=== PATIENT | male | born 1955 | race Caucasian/White ===

== ENCOUNTER 2017-05-23 15:21 | Emergency (ER) | payer MEDICARE ==
[~2017-05-23] VITALS: Ht 180.3 cm; Wt 70.0 kg
[~2017-05-23 15:21] MED LIST: ALBUTEROL SULFA0.5 % IN; IPRATROPIUM BR0.03 %; PREDNISONE1 MG PO; PRILOSEC20 MG/CAP PO; SYMBICORT1 AE1 IN; VENTOLIN HFA IN
[2017-05-23] MEDS ORDERED: PREDNISONE10 MG PO (15:45)
[2017-05-23 16:31] LABS: HEMATOCRIT 47.1 % (39.0-50.0); HEMOGLOBIN 15.4 g/dl (14.0-18.0); IMMATURE GRANULOCYTES 0.7 % (0.0-1.0); MEAN CELL VOLUME 94.8 fL CALC (80.0-100.0); MEAN CORPUSCULAR HGB CONC 32.7 g/L CALC (32.0-36.0); NEUT# 9.27 thou/uL (1.82-7.42); RED BLOOD COUNT 4.97 mill/uL (4.70-6.10); RED CELL DISTRI WIDTH 14.8 % (11.5-15.5)
[2017-05-23 16:38] LABS: ANION GAP 17 (6-22 (CALC)); BUN 14 mg/dL (9-20); BUN/CREATININE RATIO 19 (12-20 (CALC)); CARBON DIOXIDE 28 mmol/l (22-30); CHLORIDE 102 mmol/l (95-108); CREATININE 0.7 mg/dL (0.7-1.3); GFR > 60 ML/MIN (>=60 (CALC)); GFR FOR AFR.AMER. > 60 ML/MIN (>=60 (CALC)); POTASSIUM 3.6 mmol/l (3.5-5.1); SODIUM 143 mmol/l (137-146)
[2017-05-23] MEDS ORDERED: ZPAK PO (17:34)
[2017-05-23] MEDS ORDERED: PREDNISONE50 MG PO (17:34)
[2017-05-23 17:35] VITALS: BP 171/97
== END 2017-05-23 17:35 | disposition left against medical advice (07) ==
LOC: ED 15:21
PROVIDERS: Family Medicine
DX: J44.1 Chronic obstructive pulmonary disease with (acute) exacerbation (principal); I10 Essential (primary) hypertension; R06.02 Shortness of breath; Z91.19 Patient's noncompliance with other medical treatment and regimen

== ENCOUNTER 2017-11-06 22:13 | Emergency (ER) | payer MEDICARE ==
[~2017-11-06] VITALS: Ht 180.3 cm; Wt 75.0 kg
[~2017-11-06 22:13] MED LIST changes: +PREDNISONE10 MG PO; +PREDNISONE50 MG PO; +ZPAK PO
[2017-11-06] MEDS ORDERED: PREDNISONE10 MG PO (23:16)
[2017-11-07 00:04] VITALS: BP 159/87
== END 2017-11-07 00:05 | disposition home or self-care (01) ==
LOC: ED 22:13
DX: M54.12 Radiculopathy, cervical region (principal)

== ENCOUNTER 2017-12-22 10:27 | Inpatient (IN) | payer MEDICARE ==
[~2017-12-22] VITALS: Ht 180.3 cm; Wt 65.0 kg
[2017-12-22] VITALS (13 sets, daily range): BP systolic 91–148; BP diastolic 51–86
--- NOTE | 2017-12-22 10:36 | NUR ---
PT TO ROOM VIA WHEELCHAIR.
--- NOTE | 2017-12-22 10:43 | NUR ---
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 HIS PCP GAVE 2 UNKNOWN MEDICATIONS TO TREAT HIM BUT SYMPTOMS WORSENED AND FEVER STARTED 2 DAYS PRIOR.
[2017-12-22 11:13] LABS: HEMATOCRIT 42.5 % (39.0-50.0); HEMOGLOBIN 14.6 g/dl (14.0-18.0); MEAN CELL VOLUME 92.8 fL CALC (80.0-100.0); MEAN CORPUSCULAR HGB 31.9 pG CALC (26.0-32.0); MEAN CORPUSCULAR HGB CONC 34.4 g/L CALC (32.0-36.0); NEUT# 19.33 thou/uL (1.82-7.42); PLATELET COUNT 328 thou/uL (130-400); RED BLOOD COUNT 4.58 mill/uL (4.70-6.10)
--- NOTE | 2017-12-22 11:17 | NUR ---
PT WITH HOB ELEVATED, NON PRODUCTIVE COUGH NOTED. LS DIMINISHED, 02 89-90% RA. AWARE. ABG ORDERED AT THIS TIME. RT AT BEDSIDE.
[2017-12-22 11:27] LABS: ALBUMIN 3.9 g/dL (3.2-5.0); BILIRUBIN, TOTAL 0.8 mg/dL (0.0-1.4); TOTAL PROTEIN 8.6 g/dL (6.3-8.2)
[2017-12-22 11:28] LABS: INFLUENZA A NONE DETECTED (NONE DETECT); INFLUENZA B NONE DETECTED (NONE DETECT)
[2017-12-22 11:28] LABS: CREATININE 4.1 mg/dL (0.7-1.3)
--- NOTE | 2017-12-22 11:28 | NUR ---
RT AT BEDSIDE, PT PLACED ON O2 AT 3L VIA NC BY RT. 02 94-95% AT THIS TIME.
[2017-12-22 11:32] LABS: IMMATURE GRANULOCYTES 7.7 % (0.0-5.0)
[2017-12-22 11:33] LABS: MANUAL DIFFERENTIAL YES
[2017-12-22 11:34] LABS: BAND 10 % (0-8)
--- NOTE | 2017-12-22 11:39 | NUR ---
NS 1000ML BOLUS # [address] STARTED [address] VERBAL ORDER [address] GOFF. IV SITE WITHOUT REDNESS/SWELLILNG. ICE CHIPS GIVEN PER PT REQUEST.
--- NOTE | 2017-12-22 12:51 | NUR ---
SBAR PRINTED TO FLOOR
--- NOTE | 2017-12-22 12:57 | NUR ---
PT RESTING QUEITLY IN BED, DENIES PAIN OR DISCOMFORT. PT DIAPHORETIC, BP RECHECK SHOWS 80'S OVER 40'S. PULSE 103. THIRD NS 1000ML IV BOLUS STARTED. MD AWARE OF CHANGE IN STATUS.
--- NOTE | 2017-12-22 13:30 | NUR ---
TELEPHONE REPORT TO JEWEL DYER.
--- NOTE | 2017-12-22 14:24 | NUR ---
PT ARRIVED TO ICU UNIT, BED 7 FROM ER VIA STRETCHER WITH 02@3LPM VIA VT. PT IS ALERT TO SELF AND PLACE, PERRL. ST WITH PVC'S ON TELEMETRY, AP- 106, B/P 104/56, RR- 16, T- 96.7, SA02@96%. PT DENIES CHEST PAIN. PT NOTED WITH SHALLOW RESP, EVEN/UNLABORED, AUDIBLE WHEEZING THROUGHOUT. ABDOMEN IS SOFT/DISTENDED/NON-TENDER,BSX4,ACTIVE, PT REPORTS EPISODES ON DIARRHEA FOR LAST 2WEEKS. PT STATES CONTINENT OF B&B, CLOTHING FROM ER SOILED. [place]IS CATHETER TO BE PLACED PER DR. OWUSU. 18G TO RAC, UNABLE TO FLUSH AT THIS TIME. SITE DISCONTINUED, CATHETER INTACT, PT TOLERATED WELL. PT WITH NOTED GENERALIZED WEAKNESS, FARZANEH'S PLACED BLE. PT ORIENTED TO ROOM, SAFETY, CALL LIGHT AND STAFF. CALL LIGHT IN REACH, BED IN LOWEST POSITION. WILL MONITOR.
[2017-12-22 14:26] LABS: CHOLESTEROL HDL RATIO 9.2 (<4.4 (CALC))
--- NOTE | 2017-12-22 14:30 | NUR ---
DR. OWUSU AND NATA FUCHS AT BEDSIDE FOR ASSESSMENT AND TO DISCUSS PLAN OF CARE. PT TO BE STARTED ON NS@75ML/HR PER DR. OWUSU.
--- NOTE | 2017-12-22 16:15 | NUR ---
PT TAKEN FOR CT OF [place]OR[place] VIA WC.
--- NOTE | 2017-12-22 16:25 | NUR ---
PT BACK ON UNIT, ASSISTED TO BED, ALL MONITORING EQUIPMENT INTACT, PT TOLERATED WELL CALL LIGHT IN REACH, WILL MONITOR
--- NOTE | 2017-12-22 16:44 | NUR ---
NOTIFIED NATA FUCHS OF ECHO AND US OF KIDNEY ORDER. UNABLE TO BE DONE TONIGHT. NATA FUCHS STATED TO LEAVE ORDER STANDS TO BE DONE TOMORROW 12-23-17. NEW ORDER FOR CLEAR LIQUID DIET RECIEVED.
[2017-12-22 16:48] LABS: URINE BILIRUBIN - DIPSTICK NEGATIVE (NEGATIVE); URINE BLOOD DIPSTICK TRACE-LYSED (NEGATIVE); URINE COLOR YELLOW; URINE GLUCOSE - DIPSTICK NEGATIVE (NEGATIVE); URINE KETONE NEGATIVE (NEGATIVE); URINE LEUK ESTERASE NEGATIVE (NEGATIVE); URINE NITRITE - DIPSTICK NEGATIVE (Negative); URINE PROTEIN - DIPSTICK 30 mg/dL (NEG-TRACE); URINE SPECIFIC GRAVITY 1.015; URINE UROBILINOGEN - DIPSTICK 0.2 E.U./dL (0.2)
[2017-12-22 16:59] LABS: URINE AMORPH SEDIMENT MANY hpf (NONE-FER); URINE CLARITY CLOUDY; URINE SQUAMOUS EPITHELIAL CELL FEW EPI/hpf (0-FEW)
[2017-12-22 17:01] LABS: BARBITURATES NEGATIVE (NEGATIVE); COCAINE NEGATIVE (NEGATIVE); METHADONE NEGATIVE (NEGATIVE); OXCYCODONE NEGATIVE (NEGATIVE); TETRAHYDROCANNABIONOL NEGATIVE (NEGATIVE); TRICYLIC ANTIDEPRESSANTS POSITIVE (NEGATIVE)
--- NOTE | 2017-12-22 19:10 | NUR ---
awake. sitting in high fowlers position. sob with any activity. coarse/wheezy breath sounds bilat. o2 cont per nc. director of cardiac cath lab shows sinus tach. #20 rfa ns infusing @ 75cchr. velasquez cath in place. urine cloudy yellow. fall precautions cont.
--- NOTE | 2017-12-22 19:55 | NUR ---
pt c/o resp distress. sao2 79%. color dusky. skin diaphoretic. resps 44 & labored. registered nurse cardiac shows sinus tach hr 148. rt notified of need for neb tx.
--- NOTE | 2017-12-22 20:10 | NUR ---
AFTER GIVING A BREATHING TREATMENT TO THE PATIENT BECAUSE HIS BREATHING WAS 40 B/M, BREATH SOUND WHEEZING AND COARSE AT THE SAME TIME AND HIS SATURATION ON 2L 80%. ABG WAS DRAWN AND BIPAP WAS BROUGHT AT BEDSIDE WHILE DRAWING THE ABG. BIPAP PLACED ON PATIENT BEFORE RT LEFT THE ROOM TO ANALYSE ABG. RESULT ON DVTel. BIPAP SETTING 20/10 PRESSURE, 20 RATE, WITH 45% FIO2. PATIENT STATED BEING COMFORTABLE AFTER BEING PLACED ON BIPAP.
--- NOTE | 2017-12-22 20:15 | NUR ---
color pink skin w/d. pt is awake. denies further resp diff. bipap cont. case monitor shows sinus tach hr 131. hemopytsis conts.
--- NOTE | 2017-12-22 20:20 | NUR ---
message left for dr garcia.
--- NOTE | 2017-12-22 20:30 | NUR ---
dr geronimo returned call. updated on pts condition. no new orders.
--- NOTE | 2017-12-22 20:50 | NUR ---
ivf increased to 100cchr.
--- NOTE | 2017-12-22 20:50 | NUR ---
dr garcia called this screenplay writer. updated on pts condition. orders rec'd.
--- NOTE | 2017-12-22 22:00 | NUR ---
awake. denies resp diff. bipap conts. director of cardiac rehabilitation shows sinus tach hr 126.
--- NOTE | 2017-12-22 23:00 | NUR ---
resting quietly. no acute resp diff. bipap conts. campus monitor shows sinus tach hr 126.
[2017-12-23] VITALS (7 sets, daily range): BP systolic 106–132; BP diastolic 60–74
--- NOTE | 2017-12-23 00:33 | NUR ---
up to bsc x1 assist. guadalupe well. stool spec sent to lab. bipap cont. denies acute resp diff.
--- NOTE | 2017-12-23 02:00 | NUR ---
awake. freq. denies acute resp diff. director of cardiac cath lab shows sinus tach.
--- NOTE | 2017-12-23 03:30 | NUR ---
bed weight obtained.
[2017-12-23 04:57] LABS: HEMATOCRIT 39.6 % (39.0-50.0); HEMOGLOBIN 13.3 g/dl (14.0-18.0); IMMATURE GRANULOCYTES 0.7 % (0.0-5.0); MEAN CELL VOLUME 95.9 fL CALC (80.0-100.0); MEAN CORPUSCULAR HGB 32.2 pG CALC (26.0-32.0); MEAN CORPUSCULAR HGB CONC 33.6 g/L CALC (32.0-36.0); NEUT# 17.65 thou/uL (1.82-7.42); RED BLOOD COUNT 4.13 mill/uL (4.70-6.10); RED CELL DISTRI WIDTH 14.4 % (11.5-15.5)
[2017-12-23 05:16] LABS: BILIRUBIN, TOTAL 0.8 mg/dL (0.0-1.4); CREATININE 3.2 mg/dL (0.7-1.3); MAGNESIUM 1.3 mg/dL (1.6-2.3); POTASSIUM 4.6 mmol/l (3.5-5.1)
[2017-12-23 05:18] LABS: ALBUMIN 2.8 g/dL (3.2-5.0); TOTAL PROTEIN 5.8 g/dL (6.3-8.2)
--- NOTE | 2017-12-23 06:15 | NUR ---
abg results rec'd. dr garcia notified. updated on pts condition. no new orders.
--- NOTE | 2017-12-23 06:30 | NUR ---
xray here. pcxr obtained.
[2017-12-23 06:54] LABS: C. DIFFICILE TOXIN A&B NEGATIVE (NEGATIVE)
--- NOTE | 2017-12-23 07:07 | NUR ---
RECVD REPORT FROM NORMA RIVERA @ START OF SHIFT. PT SLEEPING, NO S/S OF DISTRESS. PT ON BIPAP.
--- NOTE | 2017-12-23 08:15 | NUR ---
PT SITTING UP, EATING BREAKFAST. CURTAINS OPENED. PT WRAPPED IN 2 WARM BLANKETS.
--- NOTE | 2017-12-23 08:20 | NUR ---
PTS BREATHING EVEN/LABORED. SKIN PALE, COOL, DRY. DR OWUSU @BEDSIDE FOR EVALUATION/ASSESSMENT.
--- NOTE | 2017-12-23 08:33 | NUR ---
0820 DR OWUSU @BEDSIDE EVALUATING PT. POSSIBLE INTUBATION FOR WORSENING PNA AND INCREASED LABORED BREATHING. [facility] CALLED AT 0835. THEY WCB.
--- NOTE | 2017-12-23 08:40 | NUR ---
DR RICHARDSON ACCEPTED PT FOR [facility] FROM DR OWUSU. CALLING FOR BED ASSIGNMENT.
--- NOTE | 2017-12-23 08:44 | NUR ---
MASTER MOTA WITH ROOM IN 15 MINS
--- NOTE | 2017-12-23 08:46 | NUR ---
SPOKE WITH DANIEL @[facility]. ACLS UNIT DISPATCHED.
--- NOTE | 2017-12-23 08:48 | NUR ---
RECEIVED PT ON BIPAP 20/10/45% REDUCED SETTINGS PER PROTOCOL. PT NOW ON 16/5/45% SPO2 96% RR 28 PT IS RESTING IN BED WITH BIPAP ASSISTANCE.
--- NOTE | 2017-12-23 09:04 | NUR ---
DR OWUSU @BEDSIDE, EXPLAINING TRANSFER TO PT.
--- NOTE | 2017-12-23 09:17 | NUR ---
SONIA THAO SUP @R, ASSIGNED ROOM 253. [facility] "SHOULD BE HERE ANY MIN".
--- NOTE | 2017-12-23 09:24 | NUR ---
FACESHEET FAXED TO [facility] @ [phone]
--- NOTE | 2017-12-23 09:30 | NUR ---
PTS RESP RATE LOWERED & LESS DISTRESS NOTED. PT APPEARS MORE COMFORTABLE ON BIPAP. WILL CONTINUE TO MONITOR.
--- NOTE | 2017-12-23 09:32 | NUR ---
[facility] @BEDSIDE.
--- NOTE | 2017-12-23 09:32 | NUR ---
GAVE REPORT TO ICU CHARGE NURSE @ [facility]. SHE WILL HAVE TO CALL IN A NURSE TO TAKE PT. OK TO SEND.
--- NOTE | 2017-12-23 10:07 | NUR ---
PT OUT THE DOOR WITH [facility], ON CPAP, TELE, & IVF RUNNING, IN STABLE CONDITION.
== END 2017-12-23 10:07 | DRG 871 ==
LOC: ED 10:27 → ED-I 12:40 → ED 13:07 → ICU 13:08
PROVIDERS: Emergency Medicine; Nurse Practitioner Family; ADMIT Internal Medicine Nephrology; ATTEND Internal Medicine Nephrology
PROC: 0T9B70Z Drainage of Bladder with Drainage Device, Via Natural or Artificial Opening (ICD-10-PCS; principal; 2017-12-22)
PROC: 5A09357 Assistance with Respiratory Ventilation, Less than 24 Consecutive Hours, Continuous Positive Airway Pressure (ICD-10-PCS; 2017-12-22)
DX: A41.9 Sepsis, unspecified organism (principal); J18.9 Pneumonia, unspecified organism; J96.01 Acute respiratory failure with hypoxia; N17.0 Acute kidney failure with tubular necrosis; J44.0 Chronic obstructive pulmonary disease with (acute) lower respiratory infection; J44.1 Chronic obstructive pulmonary disease with (acute) exacerbation; E87.4 Mixed disorder of acid-base balance; I10 Essential (primary) hypertension; K21.9 Gastro-esophageal reflux disease without esophagitis; K44.9 Diaphragmatic hernia without obstruction or gangrene; G89.4 Chronic pain syndrome; K52.9 Noninfective gastroenteritis and colitis, unspecified; E83.42 Hypomagnesemia; E86.0 Dehydration; T39.395A Adverse effect of other nonsteroidal anti-inflammatory drugs [NSAID], initial encounter; D64.9 Anemia, unspecified; Z87.891 Personal history of nicotine dependence; Z91.81 History of falling
CPT/HCPCS: J1650

== ENCOUNTER 2022-01-10 16:07 | Emergency (ER) | payer MEDICARE ==
[~2022-01-10] VITALS: Ht 180.3 cm; Wt 67.8 kg
[2022-01-10] VITALS (22 sets, daily range): BP systolic 102–134; BP diastolic 48–74
[2022-01-10 16:38] LABS: IMMATURE GRANULOCYTES 1.3 % (0.0-5.0); MEAN CELL VOLUME 92.5 fL CALC (80.0-100.0); MEAN CORPUSCULAR HGB 30.7 pG CALC (26.0-32.0); MEAN CORPUSCULAR HGB CONC 33.1 g/dL CAL (32.0-36.0); NEUT# 15.21 thou/uL (1.82-7.42); RED BLOOD COUNT 3.62 mill/uL (4.70-6.10); RED CELL DISTRI WIDTH 14.1 % (11.5-15.5)
[2022-01-10 16:40] LABS: HEMATOCRIT 33.5 % (39.0-50.0); HEMOGLOBIN 11.1 g/dl (14.0-18.0)
[2022-01-10 16:56] LABS: ALKALINE PHOSPHATASE 51 u/l (38-126); BILIRUBIN, TOTAL 0.7 mg/dL (0.0-1.4); BUN 19 mg/dL (8-23)
[2022-01-10 16:58] LABS: ANION GAP 14 (6-22 (CALC)); BUN/CREATININE RATIO 27 (12-20 (CALC)); CARBON DIOXIDE 32 mmol/l (22-30); CHLORIDE 84 mmol/l (95-108); CREATININE 0.7 mg/dL (0.7-1.3); GFR FOR AFR.AMER. > 60 ML/MIN (>=60 (CALC)); GFR OTHER RACES > 60 ML/MIN (>=60 (CALC)); POTASSIUM 3.5 mmol/l (3.5-5.1); SGOT/AST 60 u/l (19-48); SODIUM 126 mmol/l (137-146); TOTAL PROTEIN 7.1 g/dL (6.3-8.2)
[2022-01-10 17:30] LABS: URINE BILIRUBIN - DIPSTICK NEGATIVE (NEGATIVE); URINE BLOOD DIPSTICK SMALL (NEGATIVE); URINE COLOR YELLOW; URINE GLUCOSE - DIPSTICK NEGATIVE (NEGATIVE); URINE KETONE NEGATIVE (NEGATIVE); URINE LEUK ESTERASE NEGATIVE (NEGATIVE); URINE PROTEIN - DIPSTICK TRACE mg/dL (NEG-TRACE); URINE SPECIFIC GRAVITY 1.015; URINE UROBILINOGEN - DIPSTICK 0.2 E.U./dL (0.2)
[2022-01-10 17:36] LABS: URINE NITRITE - DIPSTICK NEGATIVE (Negative)
[2022-01-10 17:43] LABS: URINE SQUAMOUS EPITHELIAL CELL RARE EPI/hpf (0-FEW)
== END 2022-01-10 21:30 | disposition home or self-care (01) ==
LOC: ED 16:07
PROVIDERS: Family Medicine
DX: J44.1 Chronic obstructive pulmonary disease with (acute) exacerbation (principal); I11.0 Hypertensive heart disease with heart failure; I50.9 Heart failure, unspecified; K21.9 Gastro-esophageal reflux disease without esophagitis; Z51.5 Encounter for palliative care; Z20.822 Contact with and (suspected) exposure to COVID-19